=== PATIENT | male | born 1995 | race Caucasian/White ===

== ENCOUNTER → 2017-02-03 | Outpatient (CLI) | payer BC ==
[~2017-02-03] MED LIST: IBUP-103 PO
--- NOTE | 2017-02-03 11:50 | DIAGNOSTIC IMAGING REPORT ---
CHEST 2 VIEWS ROUTINE HISTORY: Short of breath. COMPARISON: None. FINDINGS: The lungs are clear. Cardiac silhouette is normal in size. No pleural effusions. No pneumothorax. IMPRESSION: No acute process. Electronically signed by: Iain Santos M.D. 02/03/2017 11:48 AM Dictated Date/Time: 02/03/2017 11:45 AM
== END | disposition home or self-care (01) ==
LOC: C.RAD1850 10:59
PROVIDERS: ATTEND Physician Assistant
DX: R06.02 Shortness of breath (principal)

== ENCOUNTER → 2017-05-24 | Outpatient (CLI) | payer BC | END | disposition home or self-care (01) | LOC: C.NEUR 11:19 | PROVIDERS: ATTEND Physician Assistant | DX: R06.83 Snoring (principal) ==